=== PATIENT | male | born 1960 | race Caucasian/White ===

== ENCOUNTER 2016-09-18 09:45 | Emergency (ER) | payer MEDICAID ==
[~2016-09-18] VITALS: Ht 180.3 cm; Wt 94.8 kg
[~2016-09-18 09:45] MED LIST: HYDR-3240 PO; METF500T4 PO; OMEP20CA9 PO; PRILOSEC PO; TRAM100T2 PO
[2016-09-18] MEDS ORDERED: OXYcodone/APAP 5/325MG TABLET ONE (10:23)
[2016-09-18] MEDS ORDERED: KETOROLAC 30 MG/1 ML ONE (10:23)
[2016-09-18] MEDS ORDERED: KETOROLAC 30 MG/1 ML IM ONE (10:30)
[2016-09-18] MEDS ORDERED: OXYcodone/APAP 5/325MG TABLET PO ONE (10:30)
[2016-09-18 11:15] VITALS: BP 139/88
== END 2016-09-18 11:18 | disposition home or self-care (01) ==
LOC: ED 11:00
DX: S40.011A Contusion of right shoulder, initial encounter (principal); E11.9 Type 2 diabetes mellitus without complications; V29.88XA Motorcycle rider (driver) (passenger) injured in other specified transport accidents, initial encounter; Y93.89 Activity, other specified; Y92.89 Other specified places as the place of occurrence of the external cause; Y99.8 Other external cause status
CPT/HCPCS: 73030; 96372; 99284; J1885

== ENCOUNTER 2016-10-11 15:32 | Emergency (ER) | payer MEDICAID ==
[~2016-10-11] VITALS: Ht 180.3 cm; Wt 94.0 kg
[2016-10-11 15:49] VITALS: BP 118/70
== END 2016-10-11 16:49 | disposition home or self-care (01) ==
LOC: ED 16:00
DX: B19.20 Unspecified viral hepatitis C without hepatic coma (principal); E11.9 Type 2 diabetes mellitus without complications; K40.90 Unilateral inguinal hernia, without obstruction or gangrene, not specified as recurrent; Z90.49 Acquired absence of other specified parts of digestive tract
CPT/HCPCS: 99281

== ENCOUNTER 2016-12-04 15:09 | Emergency (ER) | payer MEDICAID ==
[~2016-12-04] VITALS: Ht 177.8 cm; Wt 95.0 kg
[2016-12-04] MEDS ORDERED: SODIUM CHLORIDE FLUSH 10ML SYR IVF ONE (15:30)
[2016-12-04] MEDS ORDERED: ONDANSETRON 2MG/ML, 2ML IVPush ONE (15:30)
[2016-12-04] MEDS ORDERED: HYDROmorphone 1 MG/ML, 1ML IVPush PRN (15:30)
[2016-12-04] MEDS ORDERED: HYDROmorphone 1 MG/ML, 1ML ONE (16:02)
[2016-12-04] MEDS ORDERED: ONDANSETRON 2MG/ML, 2ML ONE (16:02)
[2016-12-04 16:15] LABS: ASPARTATE AMINO TRANSFERASE 123 U/L (15-37); BLOOD UREA NITROGEN 13 mg/dL (7-18)
[2016-12-04 16:22] LABS: HEMATOCRIT 42.8 % (39.2-51.8); HEMOGLOBIN 14.7 g/dL (13.7-18.0); WHITE BLOOD COUNT 4.6 x10^3/uL (3.4-10)
[2016-12-04 16:25] LABS: DIFF TOTAL CELLS COUNTED 100 CELL DIFF
[2016-12-04 16:29] LABS: VERIFY COUNTS? YES
[2016-12-04] MEDS ORDERED: MAGNESIUM CITRATE 300ML ORAL SOL ONE (16:29)
[2016-12-04] MEDS ORDERED: MAGNESIUM CITRATE 300ML ORAL SOL PO ONE (16:30)
[2016-12-04 17:54] VITALS: BP 104/48
== END 2016-12-04 17:56 | disposition home or self-care (01) ==
LOC: ED 15:34
DX: S22.31XA Fracture of one rib, right side, initial encounter for closed fracture (principal); K59.00 Constipation, unspecified; E11.9 Type 2 diabetes mellitus without complications; F10.20 Alcohol dependence, uncomplicated; W01.190A Fall on same level from slipping, tripping and stumbling with subsequent striking against furniture, initial encounter; Y93.89 Activity, other specified; Y92.89 Other specified places as the place of occurrence of the external cause; Y99.8 Other external cause status
CPT/HCPCS: 36415; 71020; 74020; 80053; 81003; 83880; 85025; 85610; 85730; 96374; 96375; 99285; J1170; J2405

== ENCOUNTER 2017-04-20 20:47 | Emergency (ER) | payer MEDICAID ==
[~2017-04-20] VITALS: Ht 180.3 cm; Wt 94.0 kg
[2017-04-20 20:54] VITALS: BP 130/76
[2017-04-20] MEDS ORDERED: LORazepam 1MG TABLET PO ONE (22:30)
== END 2017-04-20 22:55 | disposition home or self-care (01) ==
LOC: ED 22:49
DX: L03.114 Cellulitis of left upper limb (principal); L03.113 Cellulitis of right upper limb; B95.62 Methicillin resistant Staphylococcus aureus infection as the cause of diseases classified elsewhere; E11.9 Type 2 diabetes mellitus without complications; Z59.0 Homelessness
CPT/HCPCS: 99283

== ENCOUNTER 2017-07-03 03:48 | Emergency (ER) | payer MEDICAID ==
[~2017-07-03] VITALS: Ht 180.3 cm; Wt 96.8 kg
[2017-07-03] MEDS: ALBUTEROL/IPRATROPIUM 2.5MG/0.5MG, 3 ML NPPB SCH (04:56)
[2017-07-03 05:20] LABS: ALBUMIN 3.3 g/dL (3.4-5.0); ANION GAP 8 mmol/L (5-15); CALCIUM 8.3 mg/dL (8.5-10.1); CHLORIDE 113 mmol/L (98-107)
[2017-07-03 05:21] LABS: MEAN CORPUSCULAR HGB CONC 34.4 g/dL (33.2-36.2); MEAN CORPUSCULAR VOLUME 90.2 fL (81-97); RED BLOOD COUNT 5.03 x10^6/uL (4.38-5.82); RED CELL DISTRIBUTION WIDTH 14.8 % (9.4-14.8)
[2017-07-03] MEDS ORDERED: LIDOCAINE-MPF 2% ,5ML ONE (05:23)
[2017-07-03 05:24] LABS: ALANINE AMINOTRANSFERASE 77 U/L (12-78); ALKALINE PHOSPHATASE 136 U/L (45-117); BILIRUBIN,TOTAL 1.6 mg/dL (0.2-1.0); CREATININE 0.73 mg/dL (0.7-1.3); TOTAL PROTEIN 6.7 g/dL (6.4-8.2)
[2017-07-03] MEDS ORDERED: LIDOCAINE 2%, 20ML INFIL ONE (05:30)
[2017-07-03] MEDS ORDERED: BENZONATATE 100 MG CAPSULE PO ONE (05:30)
[2017-07-03 05:41] LABS: BASOPHILS # (AUTO) 0.03 x10^3/uL (0-0.1); BASOPHILS % (AUTO) 1 % (0-1); EOSINOPHILS # (AUTO) 0.04 x10^3/uL (0-0.4); EOSINOPHILS % (AUTO) 1 % (1-7); LYMPHOCYTES # (AUTO) 1.42 x10^3/uL (1-3.4); LYMPHOCYTES % (AUTO) 29 % (22-44); MD SCAN; MEAN PLATELET VOLUME 8.4 fL (7.4-10.4); MONOCYTES # (AUTO) 0.71 x10^3/uL (0.2-0.8); MONOCYTES % (AUTO) 14 % (2-9); NEUTROPHILS # (AUTO) 2.74 x10^3/uL (1.8-6.8); NEUTROPHILS % (AUTO) 56 % (42-75); PLATELET COUNT 62 x10^3/uL (130-400)
[2017-07-03] MEDS ORDERED: BENZONATATE 100 MG CAPSULE ONE (06:39)
[2017-07-03 06:43] VITALS: BP 100/61
== END 2017-07-03 06:44 | disposition home or self-care (01) ==
LOC: ED 05:59
DX: R06.00 Dyspnea, unspecified (principal); B34.9 Viral infection, unspecified; E11.9 Type 2 diabetes mellitus without complications; Z90.49 Acquired absence of other specified parts of digestive tract
CPT/HCPCS: 36415; 71046; 80053; 85025; 94640; 99285; J3490; J7512; J7620

== ENCOUNTER 2017-08-23 19:41 | Emergency (ER) | payer MEDICAID ==
[~2017-08-23] VITALS: Ht 180.3 cm; Wt 99.9 kg
[~2017-08-23 19:41] MED LIST changes: -TRAM100T2 PO; +TRAM100T33 PO
[2017-08-23] MEDS ORDERED: SODIUM CHLORIDE FLUSH 10ML SYR IVF ONE (20:00)
[2017-08-23 20:24] LABS: MEAN CORPUSCULAR HEMOGLOBIN 31.2 pg (27.5-34.5); MEAN CORPUSCULAR HGB CONC 34.5 g/dL (33.2-36.2); MEAN CORPUSCULAR VOLUME 90.6 fL (81-97); MEAN PLATELET VOLUME 9.6 fL (7.4-10.4); PLATELET COUNT 55 x10^3/uL (130-400); RED BLOOD COUNT 4.96 x10^6/uL (4.38-5.82); RED CELL DISTRIBUTION WIDTH 14.3 % (9.4-14.8)
[2017-08-23 20:29] LABS: ALANINE AMINOTRANSFERASE 147 U/L (12-78); ALBUMIN 3.3 g/dL (3.4-5.0); ANION GAP 7 mmol/L (5-15); CALCIUM 8.4 mg/dL (8.5-10.1); CHLORIDE 110 mmol/L (98-107); CREATININE 1.06 mg/dL (0.7-1.3)
[2017-08-23 20:34] LABS: ALKALINE PHOSPHATASE 148 U/L (45-117); BILIRUBIN,TOTAL 1.1 mg/dL (0.2-1.0); TOTAL PROTEIN 6.8 g/dL (6.4-8.2); TROPONIN I < 0.015 ng/mL (0.000-0.045)
[2017-08-23 20:41] LABS: BASOPHILS # (AUTO) 0.04 x10^3/uL (0-0.1); BASOPHILS % (AUTO) 1 % (0-1); EOSINOPHILS # (AUTO) 0.08 x10^3/uL (0-0.4); EOSINOPHILS % (AUTO) 2 % (1-7); LYMPHOCYTES # (AUTO) 1.38 x10^3/uL (1-3.4); LYMPHOCYTES % (AUTO) 26 % (22-44); MD SCAN; MONOCYTES # (AUTO) 0.53 x10^3/uL (0.2-0.8); MONOCYTES % (AUTO) 10 % (2-9); NEUTROPHILS # (AUTO) 3.26 x10^3/uL (1.8-6.8); NEUTROPHILS % (AUTO) 62 % (42-75)
[2017-08-23 20:54] VITALS: BP 122/86
[2017-08-23] MEDS ORDERED: METF500T4 PO (20:57)
== END 2017-08-23 21:26 | disposition home or self-care (01) ==
LOC: ED 21:01
DX: D69.59 Other secondary thrombocytopenia (principal); E11.65 Type 2 diabetes mellitus with hyperglycemia; R94.5 Abnormal results of liver function studies; Z90.49 Acquired absence of other specified parts of digestive tract
CPT/HCPCS: 36415; 71045; 80053; 84484; 85025; 93005; 99285

== ENCOUNTER 2019-04-18 14:36 | Emergency (ER) | payer MEDICAID ==
[~2019-04-18] VITALS: Ht 180.3 cm; Wt 91.1 kg
[~2019-04-18 14:36] MED LIST changes: +METF500T17 PO; -METF500T4 PO
[2019-04-18 14:39] VITALS: BP 128/86
--- NOTE | 2019-04-18 15:25 | NUR ---
EMBEDDED SYSTEMS DEVELOPER: PT TO ROOM FROM [facility]
--- NOTE | 2019-04-18 16:03 | NUR ---
PT HAS CO OF SKIN INFECTIONS ON ARMS, PT STATES IT IS MRSA AND HAVENT BEEN HEALING W BACTRUM.
--- NOTE | 2019-04-18 16:18 | NUR ---
Patient/Caregiver given discharge instructions and they have confirmed that they understand the instructions. Patient ambulatory with steady gait.
== END 2019-04-18 16:23 | disposition home or self-care (01) ==
LOC: ED 16:17
DX: L01.01 Non-bullous impetigo (principal); E11.9 Type 2 diabetes mellitus without complications
CPT/HCPCS: 99283

== ENCOUNTER 2019-05-07 10:58 | Emergency (ER) | payer MEDICAID ==
[~2019-05-07] VITALS: Ht 180.3 cm; Wt 90.9 kg
[2019-05-07 11:52] LABS: ALANINE AMINOTRANSFERASE 82 U/L (12-78); ALBUMIN 2.4 g/dL (3.4-5.0); ANION GAP 9 mmol/L (5-15); CALCIUM 8.2 mg/dL (8.5-10.1); CHLORIDE 104 mmol/L (98-107); CREATININE 0.78 mg/dL (0.7-1.3)
[2019-05-07 11:54] LABS: ALKALINE PHOSPHATASE 217 U/L (45-117); BILIRUBIN,TOTAL 3.4 mg/dL (0.2-1.0); TOTAL PROTEIN 6.9 g/dL (6.4-8.2)
[2019-05-07 12:25] LABS: BASOPHILS # (AUTO) 0.02 x10^3/uL (0-0.1); BASOPHILS % (AUTO) 0 % (0-1); EOSINOPHILS # (AUTO) 0.02 x10^3/uL (0-0.4); EOSINOPHILS % (AUTO) 0 % (1-7); LYMPHOCYTES % (AUTO) 10 % (22-44); MD SCAN; MEAN CORPUSCULAR HEMOGLOBIN 29.7 pg (27.5-34.5); MEAN CORPUSCULAR HGB CONC 34.3 g/dL (33.2-36.2); MEAN CORPUSCULAR VOLUME 86.5 fL (81-97); MEAN PLATELET VOLUME 8.1 fL (7.4-10.4); MONOCYTES # (AUTO) 1.12 x10^3/uL (0.2-0.8); MONOCYTES % (AUTO) 13 % (2-9); NEUTROPHILS # (AUTO) 6.77 x10^3/uL (1.8-6.8); NEUTROPHILS % (AUTO) 77 % (42-75); PLATELET COUNT 75 x10^3/uL (130-400); RED BLOOD COUNT 4.88 x10^6/uL (4.38-5.82)
[2019-05-07 12:53] LABS: CULTURE INDICATED? YES; MICROSCOPIC INDICATED
--- NOTE | 2019-05-07 14:24 | NUR ---
no answer when called for room placement
--- NOTE | 2019-05-07 14:38 | NUR ---
FROM LOBBY TO ROOM AT THIS TIME
--- NOTE | 2019-05-07 14:46 | NUR ---
PT IS RESTING ON CONSTRVCT W/ CALL LIGHT IN REACH. VS UPDATED. ALL TESTS RESULTED. PT UP FOR RECHECK AT THIS TIME.
[2019-05-07] MEDS ORDERED: ONDANSETRON ODT 4 MG PO ONE (15:00)
[2019-05-07] MEDS ORDERED: HYDROmorphone 1 MG/ML, 1ML INJ IM ONE (15:00)
[2019-05-07] MEDS ORDERED: ONDANSETRON ODT 4 MG ONE (15:38)
[2019-05-07] MEDS ORDERED: HYDROmorphone 1 MG/ML, 1ML INJ ONE (15:39)
[2019-05-07 15:44] VITALS: BP 105/62
--- NOTE | 2019-05-07 15:44 | NUR ---
PT MEDICATED PER EMAR.
--- NOTE | 2019-05-07 16:10 | NUR ---
TASK RN: DR. FERNANDEZ AT BEDSIDE FOR REASSESSMENT.
--- NOTE | 2019-05-07 16:28 | NUR ---
Patient given discharge instructions and they have confirmed that they understand the instructions. Patient ambulatory with steady gait.
== END 2019-05-07 16:29 | disposition home or self-care (01) ==
LOC: ED 16:26
DX: K40.91 Unilateral inguinal hernia, without obstruction or gangrene, recurrent (principal); K74.60 Unspecified cirrhosis of liver; E11.9 Type 2 diabetes mellitus without complications; F17.210 Nicotine dependence, cigarettes, uncomplicated
CPT/HCPCS: 36415; 74176; 80053; 81001; 83690; 85025; 87086; 96372; 99284; J1170; Q0162

== ENCOUNTER 2020-02-21 17:01 | Emergency (ER) | payer MEDICAID ==
[~2020-02-21] VITALS: Ht 180.3 cm; Wt 87.5 kg
--- NOTE | 2020-02-21 17:34 | NUR ---
PT BROUGHT BACK FROM TRIAGE CO OF FATIGUE, COUGH, SOB FOR 4-5 DAYS. DENIES FEVER, CP, OR RECENT TRAUMA.
--- NOTE | 2020-02-21 18:36 | NUR ---
Pt resting in bed, call ligth in reach.
--- NOTE | 2020-02-21 19:10 | NUR ---
assumed care of pt. pt here for malaise and cough. pt is currently in no apparent resp. distress. sitting up on gurney in position of comfort, watching video on cell phone. no family at bedside. updated on POC
[2020-02-21 19:48] VITALS: BP 124/78
== END 2020-02-21 21:21 | disposition home or self-care (01) ==
LOC: ED 18:41
DX: B34.9 Viral infection, unspecified (principal); Z20.828 Contact with and (suspected) exposure to other viral communicable diseases; R50.9 Fever, unspecified; R06.02 Shortness of breath; R05 Cough; R09.81 Nasal congestion; E11.9 Type 2 diabetes mellitus without complications; F17.200 Nicotine dependence, unspecified, uncomplicated; Z90.49 Acquired absence of other specified parts of digestive tract
CPT/HCPCS: 71045; 87635; 99284; J7512

== ENCOUNTER 2020-04-25 18:40 | Emergency (ER) | payer MEDICAID ==
[~2020-04-25] VITALS: Ht 180.3 cm; Wt 97.8 kg
--- NOTE | 2020-04-25 19:04 | NUR ---
Patient comes in with complaints of bilateral flank pain x1 month. States that it has been getting worse as well has having increase frequeny. Patient states he started a new medication for his DM recently. States he has been drinking more fluids lately but this was going on before that started. Urine obtained. Patient alert and oriented, steady gait to and from the restroom
[2020-04-25 19:36] LABS: BASOPHILS % (AUTO) 1 % (0-1); EOSINOPHILS % (AUTO) 1 % (1-7); LYMPHOCYTES % (AUTO) 37 % (22-44); MEAN CORPUSCULAR HEMOGLOBIN 30.5 pg (27.5-34.5); MEAN CORPUSCULAR HGB CONC 35.6 g/dL (33.2-36.2); MEAN PLATELET VOLUME 9.4 fL (7.4-10.4); MONOCYTES % (AUTO) 14 % (2-9); NEUTROPHILS % (AUTO) 47 % (42-75); PLATELET COUNT 100 x10^3/uL (130-400); RED BLOOD COUNT 5.72 x10^6/uL (4.38-5.82); RED CELL DISTRIBUTION WIDTH 14.2 % (9.4-14.8)
[2020-04-25 19:42] LABS: MD NO
[2020-04-25 19:48] LABS: ALBUMIN 3.6 g/dL (3.4-5.0); ANION GAP 7 mmol/L (5-15); CALCIUM 9.5 mg/dL (8.5-10.1); CHLORIDE 105 mmol/L (98-107); CREATININE 1.11 mg/dL (0.7-1.3)
[2020-04-25 19:53] LABS: MICROSCOPIC NOT IND
[2020-04-25] MEDS ORDERED: IBUPROFEN 600 MG TABLET ONE (20:23)
[2020-04-25 20:25] VITALS: BP 120/67
[2020-04-25] MEDS ORDERED: IBUPROFEN 600 MG TABLET PO ONE (20:30)
== END 2020-04-25 20:34 | disposition home or self-care (01) ==
LOC: ED 19:28
DX: M54.5 Low back pain (principal); R10.9 Unspecified abdominal pain; R11.0 Nausea; E11.9 Type 2 diabetes mellitus without complications; F17.210 Nicotine dependence, cigarettes, uncomplicated
CPT/HCPCS: 36415; 74176; 80048; 81003; 82040; 85025; 99284; 99406

== ENCOUNTER 2020-04-26 12:45 | Emergency (ER) | payer MEDICAID ==
[~2020-04-26] VITALS: Ht 180.3 cm; Wt 97.5 kg
[2020-04-26] MEDS ORDERED: SODIUM CHLORIDE FLUSH 10ML SYR IVF ONE (13:00)
--- NOTE | 2020-04-26 14:10 | NUR ---
PT COMES IN TODAY C/O HIGH BLOOD SUGAR. STATES HE JUST STARTED ON A NEW DIABETIC MEDICAITON (JARDIANCE). STATES FREQUENT URINATION. STATES HE WAS HERE LAST NIGHT FOR BACK PAIN. MONITORS CONNECTED. LAB AT BEDSIDE. VSS.
[2020-04-26 14:28] LABS: PH, VENOUS 7.425 pH (7.320-7.420)
[2020-04-26 14:40] LABS: ALANINE AMINOTRANSFERASE 88 U/L (12-78); ALBUMIN 3.7 g/dL (3.4-5.0); ANION GAP 5 mmol/L (5-15); BASOPHILS % (AUTO) 1 % (0-1); CHLORIDE 104 mmol/L (98-107); EOSINOPHILS % (AUTO) 1 % (1-7); LYMPHOCYTES % (AUTO) 31 % (22-44); MEAN CORPUSCULAR HEMOGLOBIN 30.3 pg (27.5-34.5); MEAN CORPUSCULAR HGB CONC 34.8 g/dL (33.2-36.2); MEAN PLATELET VOLUME 9.6 fL (7.4-10.4); MONOCYTES % (AUTO) 14 % (2-9); NEUTROPHILS % (AUTO) 53 % (42-75); PLATELET COUNT 98 x10^3/uL (130-400); RED BLOOD COUNT 5.82 x10^6/uL (4.38-5.82); RED CELL DISTRIBUTION WIDTH 14.2 % (9.4-14.8)
[2020-04-26 14:41] LABS: MD NO
[2020-04-26 14:43] LABS: ALKALINE PHOSPHATASE 272 U/L (45-117); CREATININE 1.06 mg/dL (0.7-1.3); TOTAL PROTEIN 7.9 g/dL (6.4-8.2)
--- NOTE | 2020-04-26 14:54 | NUR ---
PT RESTING ON [employer] WATCHING TV. AWAITING PENDING LAB RESULTS. PT STATES NO NEEDS AT THIS TIME
[2020-04-26] MEDS ORDERED: HYDROmorphone 2 MG/ML, 1ML IM PRN (15:30)
[2020-04-26 15:40] LABS: MICROSCOPIC NOT IND
[2020-04-26 15:50] LABS: ACETONE, SERUM Negative (Negative)
[2020-04-26] MEDS ORDERED: INSULIN GLARGINE 100 UNITS/ML, PEN SQ-INSULIN ONE (17:20)
--- NOTE | 2020-04-26 17:27 | NUR ---
PT RESTING ON [facility]. RN ATTEMPTED TO EXPLAIN DISCHARGE INSTRUCTIONS. PT STATES HE IS UNABLE TO [employer] SALESPERSON ORDERED LANTUS UNTIL TOMORROW. DR. HOOD AWARE AND ORDERING 8 UNITS LANTUS PRIOR TO DISCHARGE. BETTING AGENCY MANAGER AWARE. RN ORDERED LANTUS FROM PHARMACY
[2020-04-26 18:05] VITALS: BP 111/72
--- NOTE | 2020-04-26 18:06 | NUR ---
KIM ADMINISTERED BY PT. WITH RN INSTRUCTION AND SUPERVISION. PT VERBALIZES UNDERSTANDING OF USE AND ADMINSTRATION
--- NOTE | 2020-04-26 18:09 | NUR ---
PT AMBULATED TO DISCHARGE WITH STEADY GAIT. PT ENCOURAGED TO FOLLOWUP DISCUSSED. PT EDUCATED TO RETURN THE TO ED WITH WORSENING SYMPTOMS. PT EDUCATED ON USE OF LANTUS PEN WHILE ADMINISTERING ORDERED DOSE WHILE IN THE ED. PT VERBALIZES ALL DC INSTRUCTIONS.
== END 2020-04-26 18:12 | disposition home or self-care (01) ==
LOC: ED 14:52
DX: E11.65 Type 2 diabetes mellitus with hyperglycemia (principal); I10 Essential (primary) hypertension; Z90.49 Acquired absence of other specified parts of digestive tract
CPT/HCPCS: 36415; 72072; 80053; 81003; 82010; 82803; 82962; 85025; 99284; J1815

== ENCOUNTER 2020-05-15 18:45 | Emergency (ER) | payer MEDICAID ==
[~2020-05-15] VITALS: Ht 180.3 cm; Wt 100.0 kg
[~2020-05-15 18:45] MED LIST changes: +HYDR-1067 PO; -HYDR-3240 PO
--- NOTE | 2020-05-15 18:47 | NUR ---
INITIAL PT CONTACT. PT BIBA FROM [facility] FOR GENERALIZED ABDOMINAL PAIN, GENERALIZED WEAKNESS AND FATIGUE. PT OUT OF DIABETIC MEDICATIONS. HX PSOROSIS OF LIVER, NO RECENT ETOH CONSUMPTION. PT ALSO REPORTS MILD NAUSEA, NO VOMITING. PT SITTING UPRIGHT ON GURNEY, NADN, VSS. CALL LIGHT AND PERSONAL BELONGINGS WITHIN REACH. ERP AT BEDSIDE.
[2020-05-15] MEDS ORDERED: SODIUM CHLORIDE 0.9% 1,000ML IVBOLUS ONE (19:00)
[2020-05-15] MEDS ORDERED: SODIUM CHLORIDE FLUSH 10ML SYR IVF ONE (19:00)
[2020-05-15 19:17] LABS: BASOPHILS % (AUTO) 1 % (0-1); EOSINOPHILS % (AUTO) 1 % (1-7); LYMPHOCYTES % (AUTO) 35 % (22-44); MEAN CORPUSCULAR HEMOGLOBIN 30.6 pg (27.5-34.5); MEAN CORPUSCULAR HGB CONC 34.9 g/dL (33.2-36.2); MEAN PLATELET VOLUME 9.9 fL (7.4-10.4); MONOCYTES % (AUTO) 13 % (2-9); NEUTROPHILS % (AUTO) 50 % (42-75); PLATELET COUNT 61 x10^3/uL (130-400); RED BLOOD COUNT 5.24 x10^6/uL (4.38-5.82); RED CELL DISTRIBUTION WIDTH 14.6 % (9.4-14.8)
[2020-05-15 19:26] LABS: ALANINE AMINOTRANSFERASE 110 U/L (12-78); ALBUMIN 3.3 g/dL (3.4-5.0); ANION GAP 6 mmol/L (5-15); CALCIUM 8.6 mg/dL (8.5-10.1); CHLORIDE 110 mmol/L (98-107); CREATININE 0.96 mg/dL (0.7-1.3)
[2020-05-15 19:28] LABS: ALKALINE PHOSPHATASE 261 U/L (45-117)
[2020-05-15 19:36] LABS: MICROSCOPIC NOT IND
[2020-05-15 19:45] LABS: MD SCAN
--- NOTE | 2020-05-15 20:03 | NUR ---
PT SITTING UPRIGHT ON GURNEY RESTING COMFORTABLY WATCHING TV. PT DENIES ANY NEEDS AT THIS TIME. CALL LIGHT AND PERSONAL BELONGINGS WITHIN REACH.
--- NOTE | 2020-05-15 20:15 | NUR ---
ERP AT BEDSIDE
[2020-05-15 20:16] VITALS: BP 110/71
--- NOTE | 2020-05-15 20:18 | NUR ---
Patient given discharge instructions and they have confirmed that they understand the instructions. Patient ambulatory with steady gait.
== END 2020-05-15 20:27 | disposition home or self-care (01) ==
LOC: ED 20:15
DX: E11.65 Type 2 diabetes mellitus with hyperglycemia (principal); E86.0 Dehydration; R10.84 Generalized abdominal pain; R11.2 Nausea with vomiting, unspecified; M54.5 Low back pain; R53.1 Weakness; R42 Dizziness and giddiness; I10 Essential (primary) hypertension; Z90.49 Acquired absence of other specified parts of digestive tract
CPT/HCPCS: 36415; 80053; 81003; 83036; 83690; 85025; 96360; 99283; J7030

== ENCOUNTER 2020-11-26 15:40 | Emergency (ER) | payer MEDICAID ==
[~2020-11-26] VITALS: Ht 177.8 cm; Wt 97.0 kg
[~2020-11-26 15:40] MED LIST changes: -HYDR-1067 PO; +HYDR-2214 PO
[2020-11-26 16:05] VITALS: BP 133/90
[2020-11-26] MEDS ORDERED: SODIUM CHLORIDE 0.9% 1,000ML IVBOLUS ONE (16:30)
[2020-11-26 16:39] LABS: PH, VENOUS 7.408 pH (7.320-7.420)
[2020-11-26 16:47] LABS: ALBUMIN 3.5 g/dL (3.4-5.0); ANION GAP 9 mmol/L (5-15); CALCIUM 8.9 mg/dL (8.5-10.1); CHLORIDE 103 mmol/L (98-107)
[2020-11-26 16:52] LABS: ALANINE AMINOTRANSFERASE 89 U/L (12-78); ALKALINE PHOSPHATASE 199 U/L (45-117); BILIRUBIN,TOTAL 1.6 mg/dL (0.2-1.0); CREATININE 0.88 mg/dL (0.7-1.3)
[2020-11-26 17:15] LABS: ACETONE, SERUM Negative (Negative); BASOPHILS % (AUTO) 1 % (0-1); EOSINOPHILS % (AUTO) 0 % (1-7); LYMPHOCYTES % (AUTO) 19 % (22-44); MEAN CORPUSCULAR HGB CONC 35.1 g/dL (33.2-36.2); MEAN PLATELET VOLUME 9.2 fL (7.4-10.4); MONOCYTES % (AUTO) 12 % (2-9); NEUTROPHILS % (AUTO) 68 % (42-75); PLATELET COUNT 74 x10^3/uL (130-400); RED BLOOD COUNT 5.47 x10^6/uL (4.38-5.82); RED CELL DISTRIBUTION WIDTH 14.7 % (9.4-14.8)
--- NOTE | 2020-11-26 19:20 | NUR ---
AMBULATORY TO ROOM FROM LOBBY. NAD.
[2020-11-26] MEDS ORDERED: methylPREDNISolone SOD SUCC 125 MG/2 ML ONE (19:41)
[2020-11-26] MEDS ORDERED: INSULIN SINGLE DOSE, ER ONE (19:41)
[2020-11-26] MEDS ORDERED: ALBUTEROL/IPRATROPIUM 2.5MG/0.5MG, 3 ML ONE (19:43)
--- NOTE | 2020-11-26 19:55 | NUR ---
MD TO BEDSIDE TO EVAL PT, ORDERS ALREADY IN PLACE FROM [facility], AND PIV STARTED TO RIGHT AC X1 ATTEMPT 18GX1. BLOOD DRAWN, AND SENT TO LAB. PIV TAPED SECURELY. DUONEB STARTED, AND PT TOLERATING WELL. MEDS GIVEN, SEE EMAR.
[2020-11-26] MEDS ORDERED: ALBUTEROL/IPRATROPIUM 2.5MG/0.5MG, 3 ML NPPB ONE (20:00)
[2020-11-26] MEDS ORDERED: SODIUM CHLORIDE FLUSH 10ML SYR IVF ONE (20:00)
[2020-11-26] MEDS ORDERED: INSULIN REGULAR 100 UNITS/ML, 3ML VIAL IVPush ONE (20:00)
[2020-11-26] MEDS ORDERED: methylPREDNISolone SOD SUCC 125 MG/2 ML IV ONE (20:00)
--- NOTE | 2020-11-26 20:37 | NUR ---
PT TO BE DISCHARGED. PT HAS IVF 1 LITER NS BAG RUNNING. D/C WHEN FINISHED.
--- NOTE | 2020-11-26 21:08 | NUR ---
F/U AND D/C INSTRUCTIONS GIVEN TO PT WITH PRESCRIPTIONS AND HE V/U. PT AMBULATORY AND WALKED TO DISCHARGE DESK.
== END 2020-11-26 21:09 | disposition home or self-care (01) ==
LOC: ED 16:15
DX: J06.9 Acute upper respiratory infection, unspecified (principal); Z20.822 Contact with and (suspected) exposure to COVID-19; B34.9 Viral infection, unspecified; J20.9 Acute bronchitis, unspecified; E11.65 Type 2 diabetes mellitus with hyperglycemia; R00.0 Tachycardia, unspecified; I10 Essential (primary) hypertension; Z90.49 Acquired absence of other specified parts of digestive tract; F17.200 Nicotine dependence, unspecified, uncomplicated
CPT/HCPCS: 71045; 80053; 82010; 82803; 82962; 85025; 93005; 94640; 96361; 96374; 96375; 99285; J2930; J7030; U0003; U0005; J1815

== ENCOUNTER 2021-01-02 07:22 | Emergency (ER) | payer MEDICAID ==
[~2021-01-02] VITALS: Ht 180.3 cm; Wt 92.2 kg
[2021-01-02 07:23] VITALS: BP 131/75
--- NOTE | 2021-01-02 08:17 | NUR ---
Patient given discharge instructions and they have confirmed that they understand the instructions. Patient ambulatory with steady gait.
== END 2021-01-02 08:34 | disposition home or self-care (01) ==
LOC: ED 07:29
DX: L03.115 Cellulitis of right lower limb (principal); I10 Essential (primary) hypertension; E11.65 Type 2 diabetes mellitus with hyperglycemia
CPT/HCPCS: 82962; 99283